=== PATIENT | male | born 1950 | race Caucasian/White ===

== ENCOUNTER 2018-11-24 17:56 | Emergency (ER) | payer MEDICARE, BC ==
[2018-11-24] MEDS ORDERED: Sodium Chloride 0.9% 1,000 ML IV ONE ×2 (18:29→19:34)
--- NOTE | 2018-11-24 19:41 | EDM.PDOC ---
ED HPI GENERAL MEDICAL PROBLEM - General Chief Complaint: Syncope Stated Complaint: NEURO-SYNCOPE Time Seen by Provider: 11/24/18 18:21 Source of Information: Reports: Patient History Limitations: Reports: No Limitations - History of Present Illness INITIAL COMMENTS - FREE TEXT/NARRATIVE: This patient arrived by EMS because of syncope. [place] he had about 4 mixed drinks all day he never had anything else to eat or drink then he was sitting in a chair suddenly he felt faint and fell off the chair. He woke up other people were standing over him. They got him up they sent him on the steps of a trailer and when they did he felt the same way and passed out for a few seconds. He said prior to this he felt just fine he never had any chest pain palpitations or dizziness. He thinks maybe he could be a little bit dehydrated. He describes himself otherwise is healthy. Does not take any medications - Related Data Allergies Allergy/AdvReac Type Severity Reaction Status Date / Time No Known Allergies Allergy Verified 11/24/18 18:17 Home Meds: Home Meds NK [No Known Home Meds] 11/24/18 [History] Past Medical History HEENT History: Reports: Impaired Vision Musculoskeletal History: Reports: Fracture - Past Surgical History Musculoskeletal Surgical History: Reports: Knee Replacement, Shoulder Surgery Social & Family History - Tobacco Use Smoking Status *Q: Never Smoker - Recreational Drug Use Recreational Drug Use: No ED ROS GENERAL - Review of Systems Review Of Systems: See Below Constitutional: Reports: No Symptoms HEENT: Reports: No Symptoms Respiratory: Reports: No Symptoms Cardiovascular: Reports: No Symptoms Endocrine: Reports: No Symptoms GI/Abdominal: Reports: No Symptoms : Reports: No Symptoms Musculoskeletal: Reports: No Symptoms Skin: Reports: No Symptoms Neurological: Reports: Syncope Psychiatric: Reports: No Symptoms Hematologic/Lymphatic: Reports: No Symptoms - Physical Exam Exam: See Below Exam Limited By: No Limitations General Appearance: Alert, WD/WN, No Apparent Distress Eye Exam: Bilateral Eye: Conjunctival Injection (He told the nurse he smoked a little bit of pot), EOMI, PERRL Ears: Normal External Exam Nose: Normal Inspection Throat/Mouth: Normal Oropharynx (Membranes are moist) Head Exam: Atraumatic Neck: Normal Inspection, Supple Respiratory/Chest: Lungs Clear Cardiovascular: Normal Peripheral Pulses, No Murmur GI/Abdominal: Soft, Non-Tender Neuro Exam (Abbreviated): Alert, Oriented, CN II-XII Intact, Normal Cognition, No Motor/Sensory Deficits Extremities: Normal Inspection, Other Skin Exam: Warm, Dry Course - Vital Signs Last Recorded V/S: Last Vital Signs Temp 35.9 C 11/24/18 18:07 Pulse 73 11/24/18 19:55 Resp 17 11/24/18 19:28 BP 147/88 H 11/24/18 19:55 Pulse Ox 95 11/24/18 19:28 Orthostatic Blood Pressure [ 144/87 Standing] Orthostatic Blood Pressure [ 148/91 Sitting] Orthostatic Blood Pressure [ 135/80 Supine] - Orders/Labs/Meds Orders: Active Orders 24 hr Category Date Time Status EKG Documentation Completion [RC] ASDIRECTED Care 11/24/18 18:30 Active Orthostatic Vital Signs [RC] ONETIME Care 11/24/18 19:33 Active EKG 12 Lead [EK] Urgent Ther 11/24/18 18:29 Ordered Labs: Laboratory Tests 11/24/18 11/24/18 11/24/18 Range/Units 18:26 18:26 18:26 WBC 7.2 (4.5-11.0) K/uL RBC 3.86 L (4.30-5.90) M/uL Hgb 12.0 (12.0-15.0) g/dL Hct 35.4 L (40.0-54.0) % MCV 92 (80-98) fL MCH 31 (27-31) pg MCHC 34 (32-36) % Plt Count 159 (150-400) K/uL Neut % (Auto) 74 H (36-66) % Lymph % (Auto) 16 L (24-44) % [place] % (Auto) 9 H (2-6) % Eos % (Auto) 1 L (2-4) % Baso % (Auto) 0 (0-1) % Sodium 142 (140-148) mmol/L Potassium 3.5 L (3.6-5.2) mmol/L Chloride 106 (100-108) mmol/L Carbon Dioxide 26 (21-32) mmol/L Anion Gap 13.5 (5.0-14.0) mmol/L BUN 20 H (7-18) mg/dL Creatinine 1.3 (0.8-1.3) mg/dL Est Cr Clr Drug Dosing 53.63 mL/min Estimated GFR (MDRD) 55 L (>60) Glucose 107 H (74-106) mg/dL Calcium 8.5 (8.5-10.1) mg/dL Total Bilirubin 0.4 (0.2-1.0) mg/dL AST 18 (15-37) U/L ALT 29 (12-78) U/L Alkaline Phosphatase 66 (46-116) U/L Total Protein 6.3 L (6.4-8.2) g/dL Albumin 3.2 L (3.4-5.0) g/dL Globulin 3.1 (2.3-3.5) g/dL Albumin/Globulin Ratio 1.0 L (1.2-2.2) Ethyl Alcohol 33 mg/dL Meds: Medications Discontinued Medications Generic Name Dose Route Start Last Admin Trade Name Freq PRN Reason Stop Dose Admin Sodium Chloride 1,000 mls @ 999 mls/hr 11/24/18 18:29 11/24/18 19:00 Normal Saline IV 11/24/18 19:29 999 mls/hr .BOLUS ONE Administration Sodium Chloride 1,000 mls @ 999 mls/hr 11/24/18 19:34 11/24/18 20:03 Normal Saline IV 11/24/18 20:34 999 mls/hr .BOLUS ONE Administration - Re-Assessments/Exams Free Text/Narrative Re-Assessment/Exam: 11/25/18 07:02 Orthostatics were done on this patient after he received 1 L IV normal saline. A second liter of saline had been started but then labs were all back and the patient wanted to just go straight home. I believe this is safe to do and so the patient was dispensed he was warned however that drinking alcohol on an empty stomach can have bad effects. He was encouraged always to eat a regular diet whenever he is having any drinks Departure - Departure Time of Disposition: 20:24 Disposition: Home, Self-Care 01 Condition: Fair Clinical Impression: Syncope - Discharge Information Instructions: Syncope, [id number] Referrals: PCP,None [Primary Care Provider] - Forms: ED Department Discharge Additional Instructions: Most likely you're passing out was caused by your blood pressure dropping when you stated an or set up. It's probably related to alcohol in the fact that you hadn't eaten or drank any other fluids during the day. In the future if you're going to have some drinks make sure that you to eat some regular food too and not just the alcoholic beverages. - My Orders Last 24 Hours: My Active Orders 11/24/18 18:29 EKG 12 Lead [EK] Urgent 11/24/18 18:30 EKG Documentation Completion [RC] ASDIRECTED 11/24/18 19:33 Orthostatic Vital Signs [RC] ONETIME - Assessment/Plan Last 24 Hours: My Active Orders 11/24/18 18:29 EKG 12 Lead [EK] Urgent 11/24/18 18:30 EKG Documentation Completion [RC] ASDIRECTED 11/24/18 19:33 Orthostatic Vital Signs [RC] ONETIME
== END 2018-11-24 20:31 | disposition home or self-care (01) ==
LOC: JP.ED 17:56
DX: R55 Syncope and collapse (principal)
CPT/HCPCS: 36415; 80053; 85025; 93005; 93010; 96360; 99283; 99284; G0480; J7030